=== PATIENT | male | born 1990 | race Caucasian/White ===

== ENCOUNTER → 2019-05-31 | Outpatient (CLI) | payer MEDICAID, SELFPAY ==
--- NOTE | 2019-05-31 10:16 | RAD_ITS ---
CLINICAL HISTORY: Male, 28 years old. Meatal stenosis. PROCEDURE: Retrograde urethrogram. FLUOROSCOPY TIME (if supplied): (69 seconds) minutes/seconds TECHNIQUE: (All elements of maximal sterile barrier technique followed, including US elements as applicable) A retrograde urethrogram was performed through an indwelling catheter. There is evidence of prostatic calcification. No urethral stenosis is seen. RAD/Urethrocystography Retrograde IMPRESSION: No urethral stenosis is seen. Electronically Signed: Ki Hall, at 14:36 EDT , Service support ,
--- NOTE | 2019-05-31 11:00 | NURSING ---
ODELL CATHETER ATTEMPT X2 BY THIS RN WITH 14 FR AND 8 FR. UNABLE TO ADVANCE PAST MEATUS. PT USUALLY SELF CATHS, SEVERAL TIMES A DAY. PT ABLE TO ADVANCE 10 FR CATHETER WITH STERILE GLOVES. CONTRAST INJECTED BY MIKE AVILES. SUCCESSFUL STUDY.
== END | disposition home or self-care (01) ==
LOC: RAD 10:13
PROVIDERS: PCP Family Medicine
DX: Q64.33 Congenital stricture of urinary meatus (principal)
CPT/HCPCS: 51610; 51702; 74450; Q9965